=== PATIENT | male | born 1975 | race African-American/Black ===

== ENCOUNTER 2022-07-30 07:27 | Emergency (ER) | payer OTHER ==
[2022-07-30] MEDS ORDERED: NA CHLORIDE 0.9% 1,000 ML ONE (07:41)
[2022-07-30] MEDS ORDERED: LEVETIRACETAM 500 MG/5 ML VIAL IV ONE (07:41)
[2022-07-30] MEDS ORDERED: NA CHLORIDE 0.9% 50 ML ONE (07:42)
[2022-07-30] MEDS ORDERED: AMLODIPINE 10 MG TAB ONE (07:42)
[2022-07-30] MEDS ORDERED: LOSARTAN POTASSIUM 50 MG TABLET ONE (07:46)
[2022-07-30 07:58] LABS: Absolute Lymphocytes (CBC) 0.8 K/uL (0.7-4.9); Hematocrit 49.5 % (39.6-49.0); Lymphocytes % 5.3 % (15.3-44.8); MCV 90.2 fL (80-100); MPV 9.4 fL (7.6-11.3); RBC Red Blood Cell Count 5.49 M/uL (4.33-5.43)
--- NOTE | 2022-07-30 08:04 | RAD REPORT ---
EXAM DESCRIPTION: [facility] Single View07/30/2022 7:54 am CLINICAL HISTORY: Seizure COMPARISON: none FINDINGS: The lungs appear clear of acute infiltrate. The heart is normal size IMPRESSION: No acute abnormalities displayed
[2022-07-30 08:15] LABS: Potassium 3.6 mEq/L (3.5-5.1)
[2022-07-30] MEDS ORDERED: cloNIDine HCL 0.1 MG TAB ONE (09:07)
--- NOTE | 2022-07-30 09:24 | ER ---
Nurse's Notes [facility] Name: Jarod Murray Age: 47 yrs Sex: Male : 1975 Arrival Date: 07/30/2022 Time: 07:27 Bed 4 Private MD: Diagnosis: Epileptic seizures related to external causes, not intractable Presentation: 07/30 07:29 Chief complaint: Patient states: Seizure activity today. Has been out of hypertension ll1 and seizure medications since Friday. Coronavirus screen: Vaccine status: Patient reports receiving the 2nd dose of the covid vaccine. Client denies travel out of the [place] in the last 14 days. congestion, cough unrelated to allergies. Ebola Screen: Patient denies travel to an Ebola-affected area in the 21 days before illness onset. Initial Sepsis Screen: Does the patient meet any 2 criteria? No. Patient's initial sepsis screen is negative. Does the patient have a suspected source of infection? No. Patient's initial sepsis screen is negative. Risk Assessment: Do you want to hurt yourself or someone else? Patient reports no desire to harm self or others. Onset of symptoms was July 30, 2022. 07:29 Method Of Arrival: Ambulatory ll1 07:29 Acuity: CLARY 2 ll1 Triage Assessment: 07:32 General: Appears uncomfortable, Behavior is calm, cooperative, appropriate for age. ll1 Pain: Complains of pain in head Pain currently is 4 out of 10 on a pain scale. Quality of pain is described as aching. Neuro: Reports headache seizure activity. Cardiovascular: No deficits noted. Historical: - Allergies: 07:32 No Known Allergies; ll1 - PMHx: 07:32 Hypertensive disorder; Seizure; ll1 - PSHx: 07:32 Appendectomy; hernia repair; ll1 - Immunization history:: Adult Immunizations up to date, Client reports receiving the 2nd dose of the Covid vaccine. - Social history:: Smoking status: Patient/guardian denies using tobacco. - Family history:: not pertinent. - Hospitalizations: : No recent hospitalization is reported. Screenin:31 [facility] ED Fall Risk Assessment (Adult) History of falling in the last 3 months, db including since admission No falls in past 3 months (0 pts) Confusion or Disorientation No (0 pts) Intoxicated or Sedated No (0 pts) Impaired Gait No (0 pts) Mobility Assist Device Used No (0 pt) Altered Elimination No (0 pt) Score/Fall Risk Level 0 - 2 = Low Risk Oriented to surroundings, Maintained a safe environment. Abuse screen: Denies threats or abuse. Denies injuries from another. Nutritional screening: No deficits noted. Tuberculosis screening: No symptoms or risk factors identified. Assessment: 07:30 Reassessment: Patient appears in no apparent distress at this time. Patient and/or db family updated on plan of care and expected duration. Pain level reassessed. Patient is alert, oriented x 3, equal unlabored respirations, skin warm/dry/pink. General: Appears in no apparent distress. comfortable, Behavior is calm, cooperative. Neuro: Level of Consciousness is awake, alert, obeys commands, Oriented to person, place, time, situation. Respiratory: Airway is patent Respiratory effort is even, unlabored, Respiratory pattern is regular, symmetrical. 09:31 Reassessment: Patient appears in no apparent distress at this time. Patient and/or db family updated on plan of care and expected duration. Pain level reassessed. Patient is alert, oriented x 3, equal unlabored respirations, skin warm/dry/pink. Vital Signs: 07:29 BP 167 / 115; Pulse 112; Resp 16; Temp 98.2; Pulse Ox 97% on R/A; Weight 84.37 kg; ll1 Height 5 ft. 7 in. ; Pain 4/10; 07:47 BP 166 / 120; Pulse 105; ll1 08:00 BP 170 / 122; Pulse 98; Resp 18; Pulse Ox 96% on R/A; db 08:30 BP 181 / 122; Pulse 89; Resp 16; Pulse Ox 97% on R/A; db 09:00 BP 179 / 120; Pulse 91; Resp 16; Pulse Ox 98% on R/A; db 09:30 BP 174 / 121; Pulse 90; Resp 18; Pulse Ox 97% on R/A; db 07:29 Body Mass Index 29.13 (84.37 kg, 170.18 cm) ll1 07:29 Pain Scale: Adult ll1 [place] Coma Score: 07:32 Eye Response: spontaneous(4). Motor Response: obeys commands(6). Verbal Response: ll1 oriented(5). Total: 15. ED Course: 07:29 Patient arrived in ED. ll1 07:30 Jeffrey Rivers MD is Attending Physician. rn 07:32 Triage completed. ll1 07:33 Irena Herrera, RN is Primary Nurse. db 07:33 Arm band placed on Patient placed in an exam room, on a stretcher. ll1 07:33 IV is patent, is intact, with fluids infusing freely, 18 G R AC. ll1 07:47 CBC with Diff Sent. ll1 07:47 Basic Metabolic Panel Sent. ll1 07:55 XRAY Chest (1 view) In Process Unspecified. EDMS 09:32 Patient has correct armband on for positive identification. Bed in low position. Call db light in reach. Side rails up X 1. Client placed on continuous cardiac and pulse oximetry monitoring. NIBP monitoring applied. Warm blanket given. 09:44 Patient has correct armband on for positive identification. Side rails up X2. db 09:44 No provider procedures requiring assistance completed. IV discontinued, intact, db bleeding controlled, No redness/swelling at site. 09:45 Seizure precautions initiated. db Administered Medications: 07:50 Drug: Losartan PO 100 mg Route: PO; db 09:45 Follow up: Response: No adverse reaction db 07:51 Drug: NS 0.9% IV 1000 ml Route: IV; Rate: 1 bolus; Site: right antecubital; db 09:45 Follow up: Response: No adverse reaction; IV Status: Completed infusion; IV Intake: db 1000ml 07:51 Drug: Keppra IV 1000 mg Route: IV; Rate: calculated rate; Site: right antecubital; db 08:38 Follow up: Response: No adverse reaction; IV Status: Completed infusion; IV Intake: 50mldb 07:51 Drug: amLODIPine PO 10 mg Route: PO; db 09:45 Follow up: Response: No adverse reaction db 09:07 Drug: cloNIDine PO 0.1 mg Route: PO; db 09:45 Follow up: Response: No adverse reaction db Medication: 09:45 VIS not applicable for this client. db Intake: 08:38 IV: 50ml; Total: 50ml. db 09:45 IV: 1000ml; Total: 1050ml. db Outcome: 09:24 Discharge ordered by MD. rn 09:44 Discharged to db 09:44 Discharged to Law Enforcement 09:44 Condition: stable 09:44 Discharge instructions given to patient, police, Instructed on discharge instructions, follow up and referral plans. 09:55 Patient left the ED. db Signatures: Dispatcher [employer] EDJeffrey Rodriguez MD MD rn Lewis, Lynsay RN RN 1 Irena Herrera RN RN db
--- NOTE | 2022-07-30 09:24 | EDPHYS ---
Physician Documentation [facility] Name: Jarod Murray Age: 47 yrs Sex: Male : 1975 Arrival Date: 07/30/2022 Time: 07:27 Bed 4 Private MD: ED Physician Jeffrey Rivers HPI: 07/30 07:35 This 47 yrs old Male presents to ER via Ambulatory with complaints of Probable Seizure. rn 07:35 The patient presents after having a single isolated seizure. Character of seizure(s): rn Incontinence: none. Seizure onset: just prior to arrival. Associated injury: The patient did not suffer any apparent associated injury. Current symptoms: headache. The patient has experienced similar episodes in the past. The patient has not recently seen a physician. Pt is inmate, recent transfer, meds not given for 4 days, including BP meds x 3 and seizure medication. Takes keppra. Reports mild cough and cold recently, no fever, no trauma from seizure, single seizure. No chest pain/sob/abd pain/vomiting/diarrhea. . Historical: - Allergies: 07:32 No Known Allergies; ll1 - PMHx: 07:32 Hypertensive disorder; Seizure; ll1 - PSHx: 07:32 Appendectomy; hernia repair; ll1 - Immunization history:: Adult Immunizations up to date, Client reports receiving the 2nd dose of the Covid vaccine. - Social history:: Smoking status: Patient/guardian denies using tobacco. - Family history:: not pertinent. - Hospitalizations: : No recent hospitalization is reported. ROS: 07:35 Constitutional: Negative for fever, chills, and weight loss, Eyes: Negative for injury, rn pain, redness, and discharge, Neck: Negative for injury, pain, and swelling, Cardiovascular: Negative for chest pain, palpitations, and edema, Respiratory: Negative for shortness of breath, cough, wheezing, and pleuritic chest pain, Abdomen/GI: Negative for abdominal pain, nausea, vomiting, diarrhea, and constipation, Back: Negative for injury and pain, MS/Extremity: Negative for injury and deformity, Skin: Negative for injury, rash, and discoloration, Neuro: Negative for weakness, numbness, tingling Exam: 07:35 Constitutional: This is a well developed, well nourished patient who is awake, alert, rn and in no acute distress. Head/Face: Normocephalic, atraumatic. Eyes: Pupils equal round and reactive to light, extra-ocular motions intact. ENT: no oral trauma Neck: Trachea midline, no thyromegaly or masses palpated, and no cervical lymphadenopathy. Supple, full range of motion without nuchal rigidity, or vertebral point tenderness. No Meningismus. Cardiovascular: Regular rate and rhythm. No pulse deficits. Respiratory: No increased work of breathing, no retractions or nasal flaring. Abdomen/GI: Soft, non-tender Back: No spinal tenderness. No costovertebral tenderness. Full range of motion. Skin: Warm, dry MS/ Extremity: Pulses equal, no cyanosis. Neuro: Awake and alert, GCS 15, oriented to person, place, time, and situation. Cranial nerves II-XII grossly intact. Motor strength 5/5 in all extremities. Sensory grossly intact. Cerebellar exam normal. Able to transfer himself from EMS stretcher to our bed. 07:46 ECG was reviewed by the Attending Physician. rn Vital Signs: 07:29 BP 167 / 115; Pulse 112; Resp 16; Temp 98.2; Pulse Ox 97% on R/A; Weight 84.37 kg; ll1 Height 5 ft. 7 in. ; Pain 4/10; 07:47 BP 166 / 120; Pulse 105; ll1 08:00 BP 170 / 122; Pulse 98; Resp 18; Pulse Ox 96% on R/A; db 08:30 BP 181 / 122; Pulse 89; Resp 16; Pulse Ox 97% on R/A; db 09:00 BP 179 / 120; Pulse 91; Resp 16; Pulse Ox 98% on R/A; db 09:30 BP 174 / 121; Pulse 90; Resp 18; Pulse Ox 97% on R/A; db 07:29 Body Mass Index 29.13 (84.37 kg, 170.18 cm) ll1 07:29 Pain Scale: Adult ll1 [place] Coma Score: 07:32 Eye Response: spontaneous(4). Motor Response: obeys commands(6). Verbal Response: ll1 oriented(5). Total: 15. MDM: 07:30 Patient medically screened. rn 09:21 Differential diagnosis: seizure. Data reviewed: vital signs, nurses notes, lab test rn result(s), radiologic studies, plain films, and as a result, I will discharge patient. Care significantly affected by the following chronic conditions: Hypertension. Counseling: I had a detailed discussion with the patient and/or guardian regarding: the historical points, exam findings, and any diagnostic results supporting the discharge/admit diagnosis, lab results, radiology results, the need for outpatient follow up, to return to the emergency department if symptoms worsen or persist or if there are any questions or concerns that arise at home. Response to treatment: the patient's symptoms have markedly improved after treatment, the patient's symptoms have resolved after treatment, the patient's condition has returned to base line, the patient is now symptom free, and as a result, I will discharge patient. Special discussion: I discussed with the patient/guardian in detail that at this point there is no indication for admission to the hospital. It is understood, however, that if the symptoms persist or worsen the patient needs to return immediately for re-evaluation. ED course: Pt needs to get back on medication, given some of his BP meds here, BP still high, but asymptomatic, and patient states even with meds BP runs high, spoke to him about dangers of lowering BP too fast, and agrees, will dc home, told guards needs to be given his BP and seizure meds or will continue to happen. . 07/30 07:31 Order name: CBC with Diff; Complete Time: 08:30 rn 07/30 07:31 Order name: Basic Metabolic Panel; Complete Time: 08:30 rn 07/30 07:31 Order name: XRAY Chest (1 view); Complete Time: 08:30 rn 07/30 07:31 Order name: EKG; Complete Time: 07:32 rn 07/30 07:31 Order name: IV Start; Complete Time: 07:37 rn 07/30 07:31 Order name: EKG - Nurse/Tech; Complete Time: 07:47 rn 07/30 07:31 Order name: Cardiac monitoring; Complete Time: 07:33 rn 07/30 07:31 Order name: O2 Sat Monitoring; Complete Time: 07:33 rn EC:46 Rate is 101 beats/min. Rhythm is regular. QRS [place] is Normal. [place] interval is normal. rn QRS interval is normal. QT interval is normal. No Q waves. T waves are Inverted in leads II, III, aVF, V4, V5, V6. No ST changes noted. Clinical impression: Sinus tachycardia. Interpreted by me. Reviewed by me. Administered Medications: 07:50 Drug: Losartan PO 100 mg Route: PO; db 09:45 Follow up: Response: No adverse reaction db 07:51 Drug: NS 0.9% IV 1000 ml Route: IV; Rate: 1 bolus; Site: right antecubital; db 09:45 Follow up: Response: No adverse reaction; IV Status: Completed infusion; IV Intake: db 1000ml 07:51 Drug: Keppra IV 1000 mg Route: IV; Rate: calculated rate; Site: right antecubital; db 08:38 Follow up: Response: No adverse reaction; IV Status: Completed infusion; IV Intake: 50mldb 07:51 Drug: amLODIPine PO 10 mg Route: PO; db 09:45 Follow up: Response: No adverse reaction db 09:07 Drug: cloNIDine PO 0.1 mg Route: PO; db 09:45 Follow up: Response: No adverse reaction db Disposition Summary: 07/30/22 09:24 Discharge Ordered Location: Home rn Problem: new rn Symptoms: have improved rn Condition: Stable rn Diagnosis - Epileptic seizures related to external causes, not intractable rn Followup: rn - With: Private Physician - When: As needed - Reason: Recheck today's complaints, Re-evaluation by your physician Discharge Instructions: - Discharge Summary Sheet rn - Hypertension, Adult rn - Seizure, Adult rn Forms: - Medication Reconciliation Form rn - Thank You Letter rn - Antibiotic metal burnisher - Prescription Opioid Use rn Signatures: Dispatcher [employer] Jeffrey Winkler MD MD rn Lewis, Lynsay RN RN 1 Irena Herrera RN RN db
[2022-07-30 09:59] VITALS: TEMP 98.2
[2022-07-30 10:05] VITALS: BP 174/121; O2SAT 97
--- NOTE | 2022-07-30 16:06 | EKG ---
Test Date: 2022-07-30 Test Time: 07:43:27 [employer] Developer: LML MEASUREMENT RESULTS: Intervals: Rate: 101 W[place]: 132 QRSD: 102 QT: 340 QTc: 440 [place]: P: 55 W[place]: 132 QRS: 52 T: -81 INTERPRETIVE STATEMENTS: Sinus tachycardia Left ventricular hypertrophy with repolarization abnormality Abnormal ECG No previous ECG available for comparison Electronically Signed On 07-30-22 16:04:37 CDT by Grzegorz Arboleda
== END 2022-07-30 09:55 | disposition home or self-care (01) ==
LOC: ER 07:27
DX: G40.509 Epileptic seizures related to external causes, not intractable, without status epilepticus (principal)
CPT/HCPCS: 96365; 96361; 93005; 85025; 80048; 36415; 71045; 99284; J1953; J7030